=== PATIENT | male | born 1960 | race Two or more races ===

== ENCOUNTER 2022-01-20 12:38 | Emergency (ER) | payer OTHER ==
[~2022-01-20] VITALS: Ht 180.3 cm; Wt 78.0 kg
[2022-01-20] MEDS ORDERED: HYZAAR 100-251 EACH (12:47)
== END 2022-01-20 14:16 | disposition home or self-care (01) ==
LOC: ER 12:38
DX: N23 Unspecified renal colic (principal); Z88.0 Allergy status to penicillin